=== PATIENT | female | born 1990 | race Caucasian/White ===

== ENCOUNTER 2019-06-14 17:48 | Emergency (ER) | payer OTHER ==
[2019-06-14 18:17] VITALS: BP 94/48; PULSE 79; RESP 18; TEMP 97.8
--- NOTE | 2019-06-14 18:54 | ED ---
General Adult HPI - General Chief complaint: Abdominal Pain Stated complaint: Abd Pain-19 wks Time Seen by Provider: 06/14/19 18:24 Source: patient, RN notes reviewed, old records reviewed Mode of arrival: ambulatory Limitations: no limitations - History of Present Illness Initial comments: 28-year-old female patient who is reportedly 19 weeks , has been following up with [employer] presents to ED with vaginal spotting, left lower quadrant cramping pain. Patient reports onset today. Denies any other complaints. Denies any nausea vomiting diarrhea chest pain shortness of breath. Systemic: Pt denies fatigue, fever/chills, rash. Pt denies weakness, night sweats, weight loss. Neuro: Pt denies headache, visual disturbances, syncope or pre-syncope. HEENT: Pt denies ocular discharge or irritation, otalgia, rhinorrhea, pharyngitis or notable lymphadenopathy. Cardiopulmonary: Pt denies chest pain, SOB, heart palpitations, dyspnea on e xertion. Abdominal/GI: Pt deniesn/v/d. : Pt denies dysuria, burning w/ urination, frequency/urgency. Denies new onset urinary or bowel incontinence. MSK: Pt denies myalgia, loss of strength or function in extremities. Neuro: Pt denies new onset weakness, paresthesias. Constitutional: NAD, AOX3, Pt has pleasant affect. HEENT: NC/AT, trachea midline, neck supple, no lymphadenopathy. Posterior pharynx non erythematous, without exudates. External ears appear normal, without discharge. Mucous membranes moist. Eyes PERRLA, EOM intact. There is no scleral icterus. No pallor noted. Cardiopulmonary: RRR, no murmurs, rubs or gallops, no JVD noted. Lungs CTAB in anterior and posterior sanon. No peripheral edema. Abdominal exam: Abdomen soft and non-distended. Left lower quadrant mild tenderness to palpation. There is no abdominal tenderness.. Bowel sounds active in LLQ. No hepatosplenomegaly. No ecchymosis Neuro: CN II-XII grossly intact. No nuchal rigidity. No raccon eyes, no [place]ada sign, no hemotympanum. No cervical spinal tenderness. MSK: No posterior calf tenderness bilaterally, homans sign negative bilaterally. Posterior tibialis and radial pulse +2 bilaterally. Sensation intact in upper and lower extremities. Full active ROM in upper and lower extremities, 5/5 stregnth. 28 old female patient who poorly 19 weeks presents to ED with left lower quadrant abdominal pain, vaginal spotting. She has been following up with OB sister thierry. Patient reports that she is just coming to check to make sure that the baby is okay. Physical exam displayed mild left lower quadrant tenderness. Plain was order blood work, blood type, Rh status, transvaginal ultrasound. After all of these studies were ordered patient requests that she wanted to leave. To that she does not want to wait any longer. States that she will return if condition worsens. Risks worse when the patient including Rh status, possible to her fetus. Patient states that she is aware of risks. Patient has poor that she had a previous transvaginal ultrasound which did display an IUP. Pt reports she also has f/u with her registered public health nurse next week. Patient will leave AGAINST MEDICAL ADVICE. Case discussed with Dr. Rosales. - Related Data Home Medications Medication Instructions Recorded Confirmed Ibuprofen [Motrin] 800 mg PO Q8HR PRN 03/21/16 03/21/16 Norethindrone-E.estradiol-Iron 1 tab PO DAILY 03/21/16 03/21/16 [Junel Fe 24 Tablet] Allergies Allergy/AdvReac Type Severity Reaction Status Date / Time No Known Allergies Allergy Verified 03/21/16 11:49 Review of Systems ROS Statement: Those systems with pertinent positive or pertinent negative responses have been documented in the HPI. ROS Other: All systems not noted in ROS Statement are negative. Past Medical History Past Medical History: No Reported History History of Any Multi-Drug Resistant Organisms: MRSA Date of last positivie culture/infection: 2011 MDRO Source:: right leg Additional Past Surgical History / Comment(s): D&C Past Psychological History: No Psychological Hx Reported Smoking Status: Current every day smoker Past Alcohol Use History: None Reported Past Drug Use History: None Reported General Exam Limitations: no limitations Course Vital Signs 06/14/19 18:13 Temperature 97.8 F Pulse Rate 79 Respiratory 18 Rate Blood Pressure 94/48 O2 Sat by Pulse 99 Oximetry Disposition Clinical Impression: Vaginal bleeding during Disposition: Left Against Medical Advice Condition: Undetermined Is patient prescribed a controlled substance at d/c from ED?: No Referrals: Lauro Briscoe MD [Primary Care Provider] - 1-2 days
--- NOTE | 2019-06-15 01:07 | ED ---
Medical Decision Making - Medical Decision Making MDM: 28 old female patient who is reportedly 19 weeks presents to ED with chief complaint of left lower quadrant abdominal pain, vaginal spotting. She has been following up regularly with hospitality housekeeper. Patient reports that she is just coming to check to make sure that the baby is okay. Physical exam displayed mild left lower quadrant tenderness. Plain was ordered including blood work, blood type, Rh status, transvaginal ultrasound. After all of these studies were ordered patient requests that she wanted to leave. Pt states that she does not want to wait any longer. States that she will return if condition worsens. Risks were discussed in depth with patient including Rh status, possible to her fetus. Patient states that she is aware of risks. Patient reports that she had a previous transvaginal ultrasound which did display an IUP. Pt reports she also has f/u with her hospitality housekeeper next week. Patient will leave AGAINST MEDICAL ADVICE. Case discussed with Dr. Rosales. Disposition Clinical Impression: Vaginal bleeding during Disposition: Left Against Medical Advice Condition: Undetermined Is patient prescribed a controlled substance at d/c from ED?: No Referrals: Lauro Briscoe MD [Primary Care Provider] - 1-2 days
== END 2019-06-14 19:06 | disposition left against medical advice (07) ==
LOC: EC 17:48
DX: O20.9 Hemorrhage in early pregnancy, unspecified (principal); O99.89 Other specified diseases and conditions complicating pregnancy, childbirth and the puerperium; R10.32 Left lower quadrant pain; O99.332 Smoking (tobacco) complicating pregnancy, second trimester; Z79.3 Long term (current) use of hormonal contraceptives; Z86.14 Personal history of Methicillin resistant Staphylococcus aureus infection; Z3A.19 19 weeks gestation of pregnancy; Z53.20 Procedure and treatment not carried out because of patient's decision for unspecified reasons
CPT/HCPCS: 99284